=== PATIENT | male | born 1995 | race Caucasian/White ===

== ENCOUNTER 2018-03-23 09:15 | Emergency (ER) | payer BC ==
[~2018-03-23] VITALS: Ht 170.2 cm; Wt 132.0 kg
[2018-03-23 09:25] VITALS: Ht 170.2 cm; Wt 132.0 kg
[2018-03-23 10:43] VITALS: BP 105/68
== END 2018-03-23 10:43 | disposition home or self-care (01) ==
LOC: ED 09:15
DX: L60.0 Ingrowing nail (principal); L03.032 Cellulitis of left toe
CPT/HCPCS: J2001